=== PATIENT | female | born 1960 | race Caucasian/White ===

== ENCOUNTER 2019-04-21 02:32 | Outpatient (CLI) | payer BC, SELFPAY ==
[2019-04-21 08:34] LABS: ALT 19 U/L (12-78); AST 15 U/L (15-37); Albumin 3.4 g/dL (3.4-5.0); Alkaline Phosphatase 91 U/L (46-116); Anion Gap 12.1 mmol/L (3-11); BUN 19 mg/dL (7-18); Bilirubin, Total 0.4 mg/dL (0.2-1.0); CO2 24.9 mmol/L (21.0-32.0); CREATININE 0.79 mg/dL (0.55-1.02); Calcium 8.6 mg/dL (8.5-10.1); Chloride 104 mmol/L (98-107); Cholesterol 183 mg/dL (50-200); Glucose 96 mg/dL (70-100); HDL Cholesterol 58 mg/dL (40-60); LDL CHOLESTEROL 106 mg/dL (<100); Potassium 4.2 mmol/L (3.5-5.1); Sodium 141 mmol/L (136-145); TSH (W/Ref FT4) 3.85 uIU/mL (0.358-3.74); Total Protein 6.8 g/dL (6.4-8.2); Triglyceride 84 mg/dL (30-150)
[2019-04-21 08:51] LABS: FREE T4 1.03 ng/dL (0.76-1.46)
== END 2019-04-21 02:52 ==
PROVIDERS: PCP Nurse Practitioner Adult Health; Visit Provider Nurse Practitioner Adult Health
DX: E66.9 Obesity, unspecified (principal); Z13.1 Encounter for screening for diabetes mellitus; Z13.220 Encounter for screening for lipoid disorders; Z13.29 Encounter for screening for other suspected endocrine disorder; Z82.49 Family history of ischemic heart disease and other diseases of the circulatory system
CPT/HCPCS: 36415; 80053; 80061; 83721; 84439; 84443

== ENCOUNTER 2019-04-23 16:55 | Outpatient (REF) | payer BC, SELFPAY ==
--- NOTE | 2019-04-23 16:00 | PAPFT_PTH ---
PATIENT: Sissy Charles LOC: [facility] U#:[id number] AGE/SX: 58/F ROOM: RE04/23/[address]: Kathy Mayfield APRN : 1960 BED: DIS: 04/23/2019 SPEC #: [id number] RECD: 04/27/19 13:06 STATUS: IRIS TEIXEIRA #: [id number] TANVI: 04/23/19 16:[address]: Kathy Mayfield DEPT: FOR[facility]LY [facility], [facility] Cytology RECD BY: Mali Bowen Tissues: 1 - CX/ENDOCX FOR PAP SMEARS Procedures: PAP THIN PREP/[facility] Screening HPV DNA PROBE Comments: [id number]
== END 2019-04-23 17:15 ==
LOC: LBN 16:55
PROVIDERS: PCP Nurse Practitioner Adult Health; Visit Provider Nurse Practitioner Adult Health
DX: Z12.4 Encounter for screening for malignant neoplasm of cervix (principal); Z11.51 Encounter for screening for human papillomavirus (HPV)
CPT/HCPCS: 88142; 87624

== ENCOUNTER 2020-05-22 01:29 | Outpatient (CLI) | payer OTHER, SELFPAY ==
[2020-05-22 17:46] LABS: TSH (W/Ref FT4) 2.37 uIU/mL (0.36-3.74)
== END 2020-05-22 01:49 ==
PROVIDERS: PCP Nurse Practitioner Adult Health; Visit Provider Nurse Practitioner Adult Health
DX: E03.9 Hypothyroidism, unspecified (principal)
CPT/HCPCS: 36415; 84443

== ENCOUNTER → 2021-07-11 02:54 | Outpatient (CLI) | payer OTHER, SELFPAY ==
--- NOTE | 2021-07-11 07:15 | DI.RAD_ITS ---
Exam(s) XR THUMB RT XR WRIST RT COMPLETE EXAM: XR WRIST RT COMPLETE CLINICAL HISTORY: r/o fracture, s/p fall on 06/29/21,ACUTE PAIN, W19.XXXA,M79.644,M25.531. TECHNIQUE: 2D digital imaging was performed. COMPARISON: CR XR THUMB RT from 07/11/2021 CR XR THUMB RT from 07/11/2021 FINDINGS: BONES: No acute fracture is present. No bony destructive lesion is seen. JOINTS: The carpal bones are normally aligned. Moderate periarticular spurring at the interphalangeal joint of the thumb. Mild degenerative changes 1st carpal metacarpal joint. SOFT TISSUE: Normal. IMPRESSION: Mild degenerative changes. No evidence of fracture. DATA REPOSITORY: RADIATION DOSE DELIVERED:
== END ==
PROVIDERS: PCP Nurse Practitioner Adult Health; Visit Provider Nurse Practitioner Adult Health
DX: G89.11 Acute pain due to trauma (principal); M25.531 Pain in right wrist; M79.644 Pain in right finger(s); M18.11 Unilateral primary osteoarthritis of first carpometacarpal joint, right hand; W19.XXXA Unspecified fall, initial encounter; Y99.8 Other external cause status
CPT/HCPCS: 73110; 73140

== ENCOUNTER 2022-02-07 02:27 | Outpatient (CLI) | payer OTHER, SELFPAY ==
[2022-02-07 14:41] LABS: Abs Immature Grans 0.03 10^3/uL (0.0-0.06); Absolute Basophil Count 0.04 10^3/uL (0.0-0.2); Absolute Lymphocyte Count 1.89 10^3/uL (1.2-3.4); Absolute Monocyte Count 0.57 10^3/uL (0.1-0.8); Absolute Neutrophil Count 5.35 10^3/uL (1.2-6.7); Basophils % 0.5; Eosinophils % 1.3; HCT 40.6 % (36.0-46.0); HGB 13.5 g/dL (11.2-15.7); Immature Grans % 0.4; Lymphocytes % 23.7; MCH 31.6 pg (27.0-33.0); MCHC 33.3 % (32.0-36.0); MCV 95.1 fL (80-95); MPV 10.2 fL (8.0-11.0); Monocytes % 7.1; Nucleated RBC 0 %; Platelet Count 257 10^3/uL (130-400); RBC 4.27 10^6/uL (3.93-5.22); RDW 12.9 % (11.7-14.6); RDW-SD 44.6 fL; WBC 7.98 10^3/uL (4.4-10.8)
[2022-02-07 16:03] LABS: ALT 17 U/L (14-59); AST 15 U/L (15-37); Albumin 3.6 g/dL (3.4-5.0); Alkaline Phosphatase 90 U/L (46-116); BUN 11 mg/dL (7-18); Bilirubin, Total 0.4 mg/dL (0.2-1.0); CREATININE 0.8 mg/dL (0.55-1.02); Calculated LDL 109 mg/dL (<100); Chloride 103 mmol/L (98-107); Cholesterol 177 mg/dL (<200); Glucose 85 mg/dL (74-106); HDL Cholesterol 57 mg/dL (40-60); Potassium 3.9 mmol/L (3.5-5.1); Sodium 138 mmol/L (136-145); TSH (W/Ref FT4) 2.17 uIU/mL (0.36-3.74); Total Protein 7.1 g/dL (6.4-8.2); Triglyceride 59 mg/dL (<150); Vitamin B12 590 pg/mL (193-986)
[2022-02-08 10:20] LABS: Hepatitis C Ab w Rflx HCV PCR Negative (Negative)
[2022-02-08 10:34] LABS: HIV-1/2 Ag & Ab Screen Negative (Negative)
[2022-02-08 11:18] LABS: Lyme Ab w Rflx to Lyme Confirm Negative (Negative)
[2022-02-09 01:12] LABS: Anaplasma phagocytophilum Negative (Negative); B. miyamotoi PCR Negative (Negative); Babesia divergens/MO-1 Negative (Negative); Babesia duncani Negative (Negative); Babesia microti Negative (Negative); Ehrlichia chaffeensis Negative (Negative); Ehrlichia ewingii/canis Negative (Negative); Ehrlichia muris eauclairensis Negative (Negative)
== END 2022-02-07 02:28 | disposition home or self-care (01) ==
LOC: LBO 02:31
PROVIDERS: PCP Nurse Practitioner Adult Health; Visit Provider Nurse Practitioner Adult Health
DX: L65.9 Nonscarring hair loss, unspecified (principal); M25.561 Pain in right knee; R53.83 Other fatigue; U07.1 COVID-19; Z11.4 Encounter for screening for human immunodeficiency virus [HIV]; Z11.59 Encounter for screening for other viral diseases; E03.9 Hypothyroidism, unspecified; E66.9 Obesity, unspecified; Z13.1 Encounter for screening for diabetes mellitus; Z13.220 Encounter for screening for lipoid disorders
CPT/HCPCS: 36415; 80053; 80061; 86803; 87389; 87798; 82607; 84443; 85025; 86618

== ENCOUNTER 2024-02-11 13:30 | Outpatient (REF) | payer OTHER, SELFPAY ==
--- NOTE | 2024-02-11 13:00 | PAPFT_PTH ---
PATIENT: Sissy Charles LOC: [facility] U#:[id number] AGE/SX: 63/F ROOM: RE02/11/[address]: Kathy Mayfield APRN : 1960 BED: DIS: 02/11/2024 SPEC #: [id number] RECD: 02/11/24 17:30 STATUS: IRIS TEIXEIRA #: [id number] TANVI: 02/11/24 13:[address]: Kathy Mayfield DEPT: PENDING SALE TO [facility] Cytology RECD BY: Mali Bowen Tissues: 1 - CX/ENDOCX FOR PAP SMEARS Procedures: PAP THIN PREP/UVM Screening HPV DNA PROBE Comments: [id number]
== END 2024-02-11 13:31 | disposition home or self-care (01) ==
LOC: LBN 13:30
PROVIDERS: PCP Nurse Practitioner Adult Health; Visit Provider Nurse Practitioner Adult Health
DX: Z12.4 Encounter for screening for malignant neoplasm of cervix (principal); Z11.51 Encounter for screening for human papillomavirus (HPV)
CPT/HCPCS: 88142; 87624

== ENCOUNTER → 2024-03-22 04:31 | Outpatient (CLI) | payer OTHER, SELFPAY ==
--- NOTE | 2024-03-22 08:45 | DI.MAMMO_ITS ---
Exam(s) MAMMO SCREENING EXAM: MAMMO SCREENING CLINICAL HISTORY: screening,z12.39,family h/o breast ca TECHNIQUE: Bilateral full field digital CC and MLO mammographic images were obtained with 3D tomosyn thesis and utilizing computer aided detection (CAD). COMPARISON: This is a baseline examination. FINDINGS: Masses/Architectural Distortion: There is an asymmetric density in the outer right breast on the cran iocaudad view. It may represent overlying fibroglandular tissue, but a spot compression views reques danny for further evaluation. Microcalcifications: No suspicious pleomorphic-type are seen. Skin Thickening/Nipple Retraction: None. IMPRESSION: 1. Asymmetric density in the outer right breast on the craniocaudad view. 2. Spot compression views requested for further evaluation. Ultrasound may be indicated at that time . BI-RADS Category 0 - Assessment Incomplete: Need additional imaging evaluation Breast Density - Category B - Scattered areas of fibroglandular density Breast density category C or D implies that the patient has dense breast tissue. Dense breast tissue is very common and is not abnormal but dense breast tissue can make it harder to find cancer on a ma mmogram. Also, dense breast tissue may increase their breast cancer risk. This information about the result of the mammogram report was provided to the patient to raise their awareness. Use this report when you speak with the patient about their risks for breast cancer, which includes their family hist ory. At that time, you may recommend for more screening tests (Ultrasound or MRI) as they might be us eful based on their risk. A negative radiographic report should not delay biopsy if a dominant or clinically suspicious mass is present. Up to ten percent of cancers are not identified on mammography. A negative report may reinforce clinical impression. Adenosis and dense breasts may obscure an underlying neoplasm. False positive reports average 6 to 10%. Patient will receive a letter notifying them of these results.
== END ==
PROVIDERS: PCP Nurse Practitioner Adult Health; Visit Provider Nurse Practitioner Adult Health
DX: Z12.31 Encounter for screening mammogram for malignant neoplasm of breast (principal); R92.8 Other abnormal and inconclusive findings on diagnostic imaging of breast
CPT/HCPCS: 77063; 77067

== ENCOUNTER → 2024-03-26 00:20 | Outpatient (CLI) | payer OTHER, SELFPAY ==
--- NOTE | 2024-03-26 09:45 | DI.MAMMO_ITS ---
Exam(s) MAMMO SCREEN CALL BACK UNI EXAM: MAMMO SCREEN CALL BACK UNI CLINICAL HISTORY: ASYMMETRIC DENSITY OUTER RIGHT BREAST R92.8 ABNL MAMMO. TECHNIQUE: Craniocaudal and mediolateral oblique Full Field Digital Mammography views of the right b reast with Computer Aided Diagnosis. COMPARISON: Comparison is made with baseline examination. FINDINGS: Mammography/Tomosynthesis: Masses/Architectural Distortion: The area of concern does not persist on the additional views. No an spicious mass or area of architectural distortion is seen. Microcalcifictions: No suspicious pleomorphic-type are seen. Skin Thickening/Nipple Retraction: None. IMPRESSION: 1. No evidence of malignancy is noted. 2. Unless there is more urgent need, follow-up screening mammography is recommended, as per [place] [employer] guidelines. 3. The findings were discussed with the patient on the date of the examination. BI-RADS Category 1 - Negative Breast Density - Category B - Scattered areas of fibroglandular density Breast density Category C or D implies that the patient has dense breast tissue. Dense breast tissue can make it harder to find cancer on a mammogram. Dense breast tissue is also associated with an incr eased risk of breast cancer. This information about the result of the mammogram report was provided to the patient to raise their awareness. Use this report when you speak with the patient about their risks for breast cancer, which includes their family history. At that time, you may recommend additional screening tests (Ultrasoun d or MRI) as these tests may add significant information. A negative radiographic report should not delay biopsy if a dominant or clinically suspicious mass is present. Up to ten percent of cancers are not identified on mammography. A negative report may reinforce clinical impression. Adenosis and dense breasts may obscure an underlying neoplasm. False positive reports average 6 to 10%. Patient will receive a letter notifying them of these results.
== END ==
PROVIDERS: PCP Nurse Practitioner Adult Health; Visit Provider Nurse Practitioner Adult Health
DX: Z12.31 Encounter for screening mammogram for malignant neoplasm of breast (principal); R92.8 Other abnormal and inconclusive findings on diagnostic imaging of breast
CPT/HCPCS: 77063; 77067

== ENCOUNTER 2024-05-03 04:38 | Outpatient (CLI) | payer OTHER, SELFPAY ==
[2024-05-03 07:52] LABS: ALT 17 U/L (14-59); AST 13 U/L (15-37); Albumin 3.4 g/dL (3.4-5.0); Alkaline Phosphatase 89 U/L (46-116); Anion Gap 9.1 mmol/L (3-11); BUN 15 mg/dL (7-18); Bilirubin, Total 0.4 mg/dL (0.2-1.0); CO2 24.9 mmol/L (21.0-32.0); CREATININE 0.8 mg/dL (0.55-1.02); Calcium 8.6 mg/dL (8.5-10.1); Calculated LDL 95 mg/dL (<100); Chloride 105 mmol/L (98-107); Cholesterol 168 mg/dL (<200); Estimated GFR 83.78 (mL/min/1.73m2); Glucose 106 mg/dL (74-106); HDL Cholesterol 57 mg/dL (40-60); Potassium 4.1 mmol/L (3.5-5.1); Sodium 139 mmol/L (136-145); TSH (W/Ref FT4) 2.21 uIU/mL (0.36-3.74); Total Protein 7.2 g/dL (6.4-8.2); Triglyceride 84 mg/dL (<150)
[2024-05-03 18:49] LABS: Hepatitis C Ab w Rflx HCV PCR Negative (Negative)
== END 2024-05-03 04:39 | disposition home or self-care (01) ==
LOC: LBO 04:38
PROVIDERS: Absent Provider Nurse Practitioner Adult Health; PCP Nurse Practitioner Adult Health; Visit Provider Nurse Practitioner Adult Health
DX: E03.9 Hypothyroidism, unspecified (principal); E66.09 Other obesity due to excess calories; R03.0 Elevated blood-pressure reading, without diagnosis of hypertension; Z11.59 Encounter for screening for other viral diseases
CPT/HCPCS: 36415; 80053; 80061; 86803; 84443

== ENCOUNTER 2025-03-25 00:11 | Outpatient (CLI) | payer OTHER, SELFPAY ==
--- NOTE | 2025-03-25 07:00 | DI.MAMMO_ITS ---
Exam(s) MAMMO SCREENING EXAM: MAMMO SCREENING CLINICAL HISTORY: screening,Z12.39. TECHNIQUE: Bilateral full field digital CC and MLO mammographic images were obtained with 3D tomosyn thesis and utilizing computer aided detection (CAD). COMPARISON: Prior mammograms were reviewed. FINDINGS: There has been no significant change in the appearance and distribution of the fibroglandular tissue is probably fatty. No new left breast findings. Asymmetric density laterally in the right breast is unchanged from the baseline mammogram of March 20 and has appearance of benign overlapping densities. There are no new spiculated masses nor new malignant appearing microcalcification groups. There is no significant architectural distortion nor skin thickening-retraction. IMPRESSION: No radiographic evidence of malignancy. BI-RADS Category 1 - Negative Breast Density - Category B - Scattered areas of fibroglandular density Breast density Category C or D implies that the patient has dense breast tissue. Dense breast tissue can make it harder to find cancer on a mammogram. Dense breast tissue is also associated with an incr eased risk of breast cancer. This information about the result of the mammogram report was provided to the patient to raise their awareness. Use this report when you speak with the patient about their risks for breast cancer, which includes their family history. At that time, you may recommend additional screening tests (Ultrasoun d or MRI) as these tests may add significant information. A negative radiographic report should not delay biopsy if a dominant or clinically suspicious mass is present. Up to ten percent of cancers are not identified on mammography. A negative report may reinforce clinical impression. Adenosis and dense breasts may obscure an underlying neoplasm. False positive reports average 6 to 10%. Patient will receive a letter notifying them of these results.
== END 2025-03-25 00:31 ==
LOC: DI 00:11
PROVIDERS: PCP Nurse Practitioner Adult Health; Visit Provider Nurse Practitioner Adult Health
DX: Z12.31 Encounter for screening mammogram for malignant neoplasm of breast (principal); R92.323 Mammographic fibroglandular density, bilateral breasts
CPT/HCPCS: 77063; 77067

== ENCOUNTER 2025-04-21 15:25 | Outpatient (REF) | payer OTHER, SELFPAY | END 2025-04-21 15:26 | disposition home or self-care (01) | LOC: LBN 15:25 | PROVIDERS: PCP Nurse Practitioner Adult Health; Visit Provider Podiatrist | DX: M79.674 Pain in right toe(s) (principal); L97.529 Non-pressure chronic ulcer of other part of left foot with unspecified severity | CPT/HCPCS: 87070; 87075; 87205 ==

== ENCOUNTER 2025-05-24 09:54 | Outpatient (CLI) | payer OTHER, SELFPAY ==
[2025-05-24 10:46] LABS: Abs Immature Grans 0.02 10^3/uL (0.0-0.06); Absolute Basophil Count 0.04 10^3/uL (0.0-0.2); Absolute Lymphocyte Count 1.56 10^3/uL (1.2-3.4); Absolute Monocyte Count 0.47 10^3/uL (0.1-0.8); Absolute Neutrophil Count 3.99 10^3/uL (1.2-6.7); Basophils % 0.6 %; Eosinophils % 1.6 %; HCT 40.5 % (36.0-46.0); HGB 13.3 g/dL (11.2-15.7); Immature Grans % 0.3 %; Lymphocytes % 25.2 %; MCH 31.1 pg (27.0-33.0); MCHC 32.8 % (32.0-36.0); MCV 95 fL (80-95); MPV 10.5 fL (8.0-11.0); Monocytes % 7.6 %; Neutrophils % 64.7 %; Platelet Count 261 10^3/uL (130-400); RBC 4.28 10^6/uL (3.93-5.22); RDW 13.4 % (11.7-14.6); RDW-SD 46.9 fL; WBC 6.18 10^3/uL (4.4-10.8)
[2025-05-24 11:13] LABS: ALT 20 U/L (14-59); AST 16 U/L (15-37); Albumin 3.4 g/dL (3.4-5.0); Alkaline Phosphatase 96 U/L (46-116); Anion Gap 10.2 mmol/L (3-11); BUN 13 mg/dL (7-18); Bilirubin, Total 0.4 mg/dL (0.2-1.0); C-Reactive Protein 0.97 mg/dL (<or=0.5); CO2 25.8 mmol/L (21.0-32.0); CREATININE 0.6 mg/dL (0.55-1.02); Calcium 8.8 mg/dL (8.5-10.1); Chloride 106 mmol/L (98-107); Estimated GFR 101.42 (mL/min/1.73m2); Glucose 106 mg/dL (74-106); Hemoglobin A1C 5.6 % (<5.7); Potassium 4.1 mmol/L (3.5-5.1); Sodium 142 mmol/L (136-145); TSH 1.71 uIU/mL (0.36-3.74); Uric Acid 6.5 mg/dL (2.6-6.0)
[2025-05-24 11:54] LABS: Cholesterol 165 mg/dL (<200); HDL Cholesterol 56 mg/dL (>or=50); Triglyceride 65 mg/dL (<150)
[2025-05-24 11:55] LABS: Calculated LDL 96 mg/dL (<100); Vitamin B12 542 pg/mL (193-986); Vitamin D 25 Total 22 ng/mL (30-100)
[2025-05-25 08:50] LABS: Insulin 13.9 uIU/mL (<29.0)
== END 2025-05-24 09:55 | disposition home or self-care (01) ==
LOC: LBO 09:54
PROVIDERS: PCP Nurse Practitioner Adult Health; Visit Provider Family Medicine
DX: E66.813 Obesity, class 3 (principal); Z68.42 Body mass index [BMI] 45.0-49.9, adult
CPT/HCPCS: 36415; 80053; 80061; 82306; 82607; 83036; 83525; 84443; 84550; 85025; 86140

== ENCOUNTER 2025-08-24 03:24 | Outpatient (CLI) | payer OTHER, SELFPAY ==
--- NOTE | 2025-08-24 06:30 | DI.MRI_ITS ---
Exam(s) MR LOWER JOINT LT WO EXAM: MR LOWER JOINT LT WO CLINICAL HISTORY: l knee pain, catching,m25.562. TECHNIQUE: Multiplanar multisequence MRI was performed. COMPARISON: No exams were available for comparison FINDINGS: BONES: There is no fracture or contusion pattern. JOINTS: There is loss of the articular cartilage at the patellofemoral joint predominantly laterally. There is subchondral edema present. Osteophytes are also present. 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 There is loss of the articular cartilage and subchondral edema in the medial femoral tibial joint. There is a small joint effusion. TENDONS: Extensor mechanism: Unremarkable. Medial retinaculum: Unremarkable. Lateral retinaculum: Unremarkable. Popliteus: Unremarkable. MUSCLES: Unremarkable. MENISCI: There is a tear of the posterior horn of the medial meniscus. The lateral meniscus is unremarkable. SOFT TISSUES: Unremarkable. LIGAMENTS: Anterior Cruciate: Unremarkable. Posterior Cruciate: Unremarkable. Medial Collateral:Unremarkable. Lateral Collateral: Unremarkable. OTHER: IMPRESSION: 1. There is a tear of the posterior horn of the medial meniscus. 2. There is no evidence of a ligament tear. 3. 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 4. Small joint effusion. DATA REPOSITORY:
== END 2025-08-24 03:44 ==
LOC: DI 03:25
PROVIDERS: PCP Nurse Practitioner Adult Health; Visit Provider Family Medicine
DX: M23.222 Derangement of posterior horn of medial meniscus due to old tear or injury, left knee (principal)
CPT/HCPCS: 73721

== ENCOUNTER 2025-09-02 09:41 | Outpatient (CLI) | payer OTHER, SELFPAY ==
--- NOTE | 2025-09-02 09:18 | DI.RAD_ITS ---
Exam(s) XR KNEE LT 4V AP,LAT,ELIESER,PAT EXAM: XR KNEE LT 4V AP,LAT,ELIESER,PAT CLINICAL HISTORY: LEFT KNEE PAIN. TECHNIQUE: 2D digital imaging was performed. COMPARISON: No exams were available for comparison FINDINGS: Four views No evidence of acute fracture but there does appear to be a moderate size joint effusion. There is mild-moderate narrowing of the medial compartment. No significant narrowing of the lateral compartment on the weight-bearing view. There is significant degenerative narrowing of the patellofemoral compartment. There is also an osteophytic density off the lateral aspect of the patella measuring 8 by 4 mm. There does not appear to be an obvious corresponding defect in the lateral aspect of patella. There is also degenerative pointing of the tibial spines. Bone density normal. No osseous lesions. IMPRESSION: Degenerative changes in the medial patellofemoral compartments. Other findings as above. Moderate size joint effusion evident DATA REPOSITORY: RADIATION DOSE DELIVERED:
== END 2025-09-02 09:42 | disposition home or self-care (01) ==
LOC: DIORS 09:41
PROVIDERS: PCP Nurse Practitioner Adult Health; Visit Provider Physician Assistant
DX: M25.562 Pain in left knee (principal)
CPT/HCPCS: 73564